=== PATIENT | female | born 1980 | race Caucasian/White ===

== ENCOUNTER → 2019-11-19 14:38 | Outpatient (BNVA) | payer MEDICAID, SELFPAY | PROVIDERS: Family Provider Nurse Practitioner Family; Visit Provider Obstetrics & Gynecology | DX: N83.202 Unspecified ovarian cyst, left side (principal); N83.201 Unspecified ovarian cyst, right side | CPT/HCPCS: 76830 ==

== ENCOUNTER → 2019-12-02 11:03 | Outpatient (BNVA) | payer MEDICAID, SELFPAY | PROVIDERS: Family Provider Nurse Practitioner Family; Visit Provider Obstetrics & Gynecology | DX: N87.1 Moderate cervical dysplasia (principal); Z90.710 Acquired absence of both cervix and uterus | CPT/HCPCS: 88175 ==

== ENCOUNTER 2021-10-01 07:27 | Outpatient (CLI) | payer MEDICAID, SELFPAY ==
--- NOTE | 2021-10-01 07:30 | XR_ITS ---
WS: [id number] KUB, AP view, 10/01/2021 Clinical Data: STONES Comparison: Acute abdomen series, 01/26/2010. Findings: No abnormal intraabdominal masses or calcifications are seen. There is no dilatated small bowel or ev idence of obstruction. There is a right ureteral stent in good position. Fecal material and bowel gas obscure detail over geena th kidneys. There are clips in the right upper quadrant from a cholecystectomy. XR/XR KUB [id number] Impression: Right ureteral stent.
== END 2021-10-01 07:28 | disposition home or self-care (01) ==
LOC: RAD 07:31
PROVIDERS: Family Provider Nurse Practitioner Family; Visit Provider Urology
DX: N20.0 Calculus of kidney (principal); N20.9 Urinary calculus, unspecified; Z96.0 Presence of urogenital implants
CPT/HCPCS: 52310; 74018; 81003; 99213

== ENCOUNTER → 2022-01-17 08:58 | Outpatient (BNVA) | payer MEDICAID, SELFPAY | PROVIDERS: Referring Provider Registered Nurse; Visit Provider Student in an Organized Health Care Education/Training Program | DX: S93.431A Sprain of tibiofibular ligament of right ankle, initial encounter (principal); W01.0XXA Fall on same level from slipping, tripping and stumbling without subsequent striking against object, initial encounter | CPT/HCPCS: 73590; 73610 ==

== ENCOUNTER 2022-02-25 14:43 | Outpatient (CLI) | payer MEDICAID, SELFPAY | END 2022-02-25 14:44 | disposition home or self-care (01) | LOC: SPT 14:44 | PROVIDERS: Visit Provider Student in an Organized Health Care Education/Training Program | DX: Z46.89 Encounter for fitting and adjustment of other specified devices (principal); S93.409S Sprain of unspecified ligament of unspecified ankle, sequela; S93.4 Sprain of ankle; X58.XXXS Exposure to other specified factors, sequela | CPT/HCPCS: 97760; L1902 ==

== ENCOUNTER → 2022-04-12 10:07 | Outpatient (BNVA) | payer MEDICAID, SELFPAY | PROVIDERS: Visit Provider Student in an Organized Health Care Education/Training Program | DX: S93.439A Sprain of tibiofibular ligament of unspecified ankle, initial encounter (principal); X58.XXXA Exposure to other specified factors, initial encounter | CPT/HCPCS: 73610 ==

== ENCOUNTER → 2022-05-23 11:24 | Outpatient (BNVA) | payer MEDICAID, SELFPAY | PROVIDERS: Visit Provider Student in an Organized Health Care Education/Training Program | DX: M25.561 Pain in right knee (principal); M25.562 Pain in left knee; S83.8X1A Sprain of other specified parts of right knee, initial encounter; X58.XXXA Exposure to other specified factors, initial encounter; M23.41 Loose body in knee, right knee | CPT/HCPCS: 73560; 73565 ==

== ENCOUNTER 2022-06-09 14:04 | Outpatient (CLI) | payer MEDICAID, SELFPAY ==
--- NOTE | 2022-06-09 14:21 | XR_ITS ---
WS: [id number] Exam: XR KUB [id number] Date/Time of Exam: 06/09/2022 2:32 PM Reason For Exam: Urolithiasis No bowel obstruction or free air. 5 mm calcification superimposes the left kidney and apparently repr esents a known renal stone. No sign of organ enlargement. Bony structures are intact. Signs of prior cholecystectomy. XR/XR KUB [id number] IMPRESSION: 1. 5 mm calcification overlying the left kidney that apparently represents a kn own renal stone. 2. No acute abdominal process.
== END 2022-06-09 14:05 | disposition home or self-care (01) ==
LOC: RAD 14:09
PROVIDERS: PCP Registered Nurse; Visit Provider Urology
DX: N20.0 Calculus of kidney (principal)
CPT/HCPCS: 74018; 81003

== ENCOUNTER 2022-06-20 07:45 | Day surgery (SDC) | payer MEDICAID, SELFPAY ==
[2022-06-17 08:57] VITALS: BMI 48.5
[2022-06-20] VITALS (10 sets, daily range): BP systolic 109–160; BP diastolic 66–101; PULSE 61–72; RESP 12–18; TEMP 36.1–36.6; O2SAT 92–100
--- NOTE | 2022-06-20 07:51 | XRR_ITS ---
PROCEDURE INFORMATION: Exam: XR Abdomen Exam date and time: 06/20/2022 7:57 AM Age: 41 years old Clinical indication: Condition or disease; Kidney or ureter condition; Calculus (stone) in kidney; Prior surgery; Surgery type: Gb, gastric sleeve, hyst; Additional info: Left lower pole stone. TECHNIQUE: Imaging protocol: Radiologic exam of the abdomen. Views: Frontal supine view of the abdomen. 1 View. COMPARISON: CR XR KUB [id number] 06/09/2022 2:32 PM FINDINGS: Gastrointestinal tract: There are bowel sutures in the left upper abdomen. Organs: Cholecystectomy clips are present. No calcifications along the expected course of the ureters. Multiple small calcifications project over both kidneys, measuring up to 6 mm on the left and 4 mm on the right. Vasculature: Tiny phleboliths are seen in pelvis. Bones/joints: Bones are unremarkable. XR/XR KUB [id number] IMPRESSION: Stable bilateral nephrolithiasis.
[2022-06-20] MEDS: sodium chloride 0.9% 1,000 ML 30 ML IV (08:53)
--- NOTE | 2022-06-20 09:07 | P.ANESASSM_ITS ---
Pre-Anesthetic Assessment Height/Weight: Height 1.7 m Weight 140.614 kg Temp Pulse Resp BP Pulse Ox O2 Del Method 97.4 F L 72 16 160/101 100 06/20/22 08:08 06/20/22 08:08 06/20/22 08:08 06/20/22 08:08 06/20/22 08:08 06/20/22 08:11 Preop Diagnosis: Left lower pole stone Operation Date: 06/20/22 09:40 Proposed Procedures p EXTRACORPOREAL SHOCKWAVE LITHOTRIPSY POSSIBLE CYSTOSCOPY LEFT STENT 26888,92459,N20.9(Left) - Ousmane Bradford MD s Cystoscopy(Not Applicable) - Ousmane Bradford MD s Ureteral Stent Placement(Left) - Ousmane Bradford MD Familial anesthetic complications: None Was Beta Ata taken within 24 hours: N/A Was Clonidine taken within 24 hours: N/A Last intake: Intake Last Liquid Date 06/19/22 Last Liquid Time 23:00 Last Solid Date 06/18/22 Last Solid Time 22:00 Social No alcohol and No tobacco Exam alert, oriented x 3, clear to auscultation bilaterally and regular rate & rhythm Airway Mallampati: Class II Dentition: false History/ROS No significant history except as noted Musc/skel Osteoarthritis/DJD Anesthetic Plan ASA status: 2 Anesthesia: General Risk of > 500 ml blood loss (7ml/kg in children): No Medications/Allergies Home Medications Medication Instructions Recorded Confirmed Last Taken Type acyclovir 200 mg capsule 200 mg PO DAILY 11/11/19 06/17/22 06/19/22 08:00 History cetirizine 10 mg capsule 10 mg PO DAILY 11/11/19 06/17/22 06/19/22 20:00 History conjugated estrogens 0.9 mg tablet 0.9 mg PO DAILY 11/11/19 06/17/22 06/19/22 08 :00 History (Premarin) omeprazole 20 mg capsule,delayed 20 mg PO DAILY 11/11/19 06/17/22 06/19/22 08:00 History release ibuprofen 800 mg tablet 800 mg PO TID 10 days #30 tabs 09/27/21 06/20/22 06/06/22 Rx alprazolam 1 mg tablet 1 mg PO DAILY PRN Anxiety 10/01/21 06/17/22 06/19/22 08:00 History lace up ankle brace #1 ea 02/25/22 06/09/22 Unknown Rx doxycycline monohydrate 100 mg 100 mg PO BID 06/17/22 06/17/22 06/19/22 20:00 History tablet levocetirizine 5 mg tablet 5 mg PO DAILY 06/17/22 06/17/22 06/19/22 20:00 History Allergies Allergy/AdvReac Type Severity Reaction Status Date / Time amoxicillin Allergy rash Verified 06/09/22 15:09 latex Allergy Hives Verified 06/09/22 15:09 cephalexin [From Keflet] AdvReac Rash, Verified 06/09/22 15:09 vomiting Current Medications Generic Name Dose Route Start Last Admin Trade Name Freq PRN Reason Stop Dose Admin Sodium Chloride 1,000 mls @ 30 mls/hr 06/20/22 08:00 06/20/22 08:53 Sodium Chloride 0.9% IV 06/21/22 07:59 30 mls/hr .Q24H TIA Administration PFSH Anesthesia Medical History Ankle syndesmosis disruption Cervical intraepithelial neoplasia grade 2 SHAYLA-2 noted on biopsy on 12/29/2010 and she had a hysterectomy for this in February 2011. She requires screening Pap smears for at least 20 years---until 2030. No pertinent past medical history Denies history of: Hypetension, hypercholesteremia, diabetes, thyroid problems, heart, kidney problems, DVT/PE. PCP: MARVIN Knight Sprain of lateral ligament of ankle joint Urolithiasis Surgical History H/O gastric bypass 03/2019, gastric sleeve performed in [place], [place] History of renal stent 09/21/2021 [facility] S/P BSO (bilateral salpingo-oophorectomy) 02/13/2020----> robotic assisted bilateral salpingo-oophorectomy and extensive adhesiolysis of omentum bowel colon and ovary. This was done for a complex left ovarian mass which was paraovarian cyst. Surgery performed by Dr. Andrez beckford at [facility]. Pathology showed benign functional ovary with inclusion cysts and dense adhesions - Operative reports have been scanned into the computer S/P cholecystectomy In her 20s---laparoscopic procedure S/P dilation and curettage Done for an elective in 2006 S/P hysterectomy 02/15/2011 --- total abdominal hysterectomy via horizontal incision above pannus performed by Dr. Danielle for SHAYLA-2 and abnormal uterine bleeding. Ovaries were spared. ---> Pathology showed no dysplasia on the cervix, secretory endometrium, benign myometrium S/P tubal ligation 2008---laparoscopic procedure Status post excision of lipoma 2014 and 2015----right upper abdominal quadrant via a horizontal incision Status post surgery 2017-procedure to remove an embedded sewing needle Family History Family/Other Diabetes maternal uncle Hypertension niece Mother Cervical cancer Denies family history of Colon cancer Ovarian cancer Hyperlipidemia Breast cancer Uterine cancer Stroke Social History Smoking and tobacco status: current every day smoker Alcohol intake: current Alcohol intake frequency: holidays/special occasions only Marital status: Current occupational status: employed Data Anesthesia Cardiac Studies: No Data to Display
--- NOTE | 2022-06-20 09:10 | W.PM.OPSUD ---
Surgery/Procedure H&P Update DATE OF PROCEDURE: June 20, 2022 DATE H&P PERFORMED: 06/09/22 H&P UPDATE INFORMATION: I have reviewed H&P completed within last 30 days, I have examined patient prior to procedure, No changes to prior documentation and H&P is in [facility] EMR on date indicated PREOP DIAGNOSIS: Left lower pole stone PLANNED PROCEDURE: Operation Date: 06/20/22 09:40 Proposed Procedures p EXTRACORPOREAL SHOCKWAVE LITHOTRIPSY POSSIBLE CYSTOSCOPY LEFT STENT [id number],N20.9(Left) - Ousmane Bradford MD s Cystoscopy(Not Applicable) - Ousmane Bradford MD s Ureteral Stent Placement(Left) - Ousmane Bradford MD
[2022-06-20] MEDS: levofloxacin-dextrose 5 % 500 MG/100 ML PREMIX 100 MG IV (09:33)
--- NOTE | 2022-06-20 10:28 | PM.OP ---
Operative Report Date of procedure: June 20, 2022 Pre-op diagnosis: Left lower pole stone Post-op diagnosis: Left lower pole stone Procedure done: 1. LEFT renal extracorporeal shockwave lithotripsy Implants: None Specimens removed/disposition: None Pathology: None Surgeon: Sanchez Dielectric Embossing Machine Operator: Eric Burger: Lithotripsy Data Recovery Planner Estimated blood loss: None Urine output: Not measured Complications: None Findings: Anesthesia: General Condition: Stable Disposition: PACU Intraoperative findings: Stone easily identified and focused upon with excellent change Total of 2100 shocks administered Brief History: Parvin is a very pleasant 41-year-old white female treated last year with endoscopic laser lithotripsy of a right proximal ureteral stone at [facility] with stent removed here. She was known to have a small stone in the left lower pole. The stone was not obstructing. Initially she elected no treatment of the stone but ultimately preferred to have the option of being stone free. She is admitted now for ESWL to the stone. Consented for stent as well. Procedure: After routine preoperative evaluation examination and obtaining of informed consent she was taken to the operating suite on 06/20/2022 where general anesthesia was administered without difficulty after appropriate timeout was performed, SCDs confirmed to be functioning, preoperative antibiotics administered, beta-spring protocol confirmed. Position on the Dornier unit such that the stone was located at the focal point with her in supine position. Shock head was initially positioned posteriorly. The stone was readily identifiable with biplanar fluoroscopy. Shockwave was initiated at a rate of 60 and after about 300 shocks a several minute pause was conducted. Rate was increased as the stone showed significant change. Intensity was increased to 5. Results: A total of 2100 shocks were administered with excellent change. No stone could be identified at the completion of the procedure. She tolerated procedure well without complications and was awakened in the operating room and returned to PACU in stable condition. PLANS: 1. Anticipate discharge from outpatient surgery 2. Follow-up in approximately 1 month for routine KUB
[2022-06-20] MEDS: fentaNYL 50 mcg/mL INJ 2mL IVP (10:53)
--- NOTE | 2022-06-20 13:05 | ANE.PACU2 ---
Inpatient post-anesthesia follow up: Airway intact: Yes Vital signs: Temperature 97.8 F Pulse Rate 69 Respiratory Rate 16 Blood Pressure 124/77 Pulse Oximetry 96 Oxygen Delivery Me thod Room Air Oxygen Flow Rate 6 Fraction of Inspir ed Oxygen Hydration adequate: Yes Nausea and vomiting: No Pain level: 1 Mental status: Baseline
== END 2022-06-20 12:20 | disposition home or self-care (01) ==
PROVIDERS: PCP Registered Nurse; Visit Provider Urology
PROC: (CPT 50590; principal; 2022-06-20 09:30)
DX: N20.0 Calculus of kidney (principal); F17.200 Nicotine dependence, unspecified, uncomplicated; Z88.0 Allergy status to penicillin
CPT/HCPCS: 50590; 74018; J0330; J1100; J1956; J2405; J2704; J2710; J3010; J3490; J7030

== ENCOUNTER 2022-06-27 09:16 | Outpatient (CLI) | payer MEDICAID, SELFPAY ==
--- NOTE | 2022-06-27 09:30 | MR_ITS ---
WS: [id number] MRI RIGHT KNEE NONCONTRAST TECHNIQUE: Axial PD, coronal PD fat sat, coronal PD, sagittal PD, and sagittal PD fat-sat images obta ined. CLINICAL INFORMATION: Pain in rt knee on movement COMPARISON: None. FINDINGS: Distal quadriceps and patella tendons are intact. Normal ACL and PCL. Small suprapatellar effusion. S mall amount of fluid and edema in the suprapatellar and pre-femoral fat pad. Prepatellar and infrapat ellar soft tissue edema. Advanced chondromalacia patella. No subchondral edema. Medial and lateral patellar retinaculum appear intact. Tiny popliteal cyst measuring 12 mm. Normal medial and lateral collateral ligaments. Normal lateral meniscus. Mild chronic thinning of the medial meniscus. No acute appearing meniscal tears. Mi ld chondromalacia medial and lateral joint compartments. MR/MR knee RT wo con* [id number] IMPRESSION: 1. Normal ACL and PCL. 2. Small suprapatellar effusion. 3. 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 No subchondral carlos a. Medial and lateral patellar retinaculum appear intact. 4. No acute appearing meniscal tears. 5. Tiny popliteal cyst measuring 12 mm. Outbridge grading:
== END 2022-06-27 09:17 | disposition home or self-care (01) ==
LOC: RAD 09:19
PROVIDERS: PCP Registered Nurse; Visit Provider Student in an Organized Health Care Education/Training Program
DX: M22.41 Chondromalacia patellae, right knee; M71.21 Synovial cyst of popliteal space [Baker], right knee; M25.461 Effusion, right knee
CPT/HCPCS: 73721

== ENCOUNTER 2022-07-11 11:37 | Outpatient (CLI) | payer MEDICAID, SELFPAY ==
--- NOTE | 2022-07-11 11:54 | XRR_ITS ---
PROCEDURE INFORMATION: Exam: XR Abdomen Exam date and time: 07/11/2022 11:58 AM Age: 41 years old Clinical indication: Condition or disease; Kidney or ureter condition; Calculus (stone) in kidney; Prior surgery; Surgery type: Gb , gastric sleeve, hyster; Additional info: Stones, kub @ 11:30am on 07/11/22, appt to follow TECHNIQUE: Imaging protocol: Radiologic exam of the abdomen. Views: Frontal supine view of the abdomen. 1 View. COMPARISON: CR XR KUB [id number] 06/20/2022 7:57 AM FINDINGS: Gastrointestinal tract: Normal. No bowel dilation. There is cholecystectomy Organs: Small calcifications are present in the projection of the lower pole collecting system of the right and left kidneys. Left-side stone measures 5 mm, right side stone measures 3.8 mm these findings were present on prior examination and appears similar Bones/joints: Unremarkable. XR/XR KUB [id number] IMPRESSION: 1. No acute GI abnormality. 2. Status post cholecystectomy. 3. Stable bilateral caliceal stones
== END 2022-07-11 11:38 | disposition home or self-care (01) ==
LOC: RAD 11:39
PROVIDERS: PCP Registered Nurse; Visit Provider Urology
DX: N20.9 Urinary calculus, unspecified (principal); Z90.49 Acquired absence of other specified parts of digestive tract
CPT/HCPCS: 74018; 81003

== ENCOUNTER 2022-08-22 08:12 | Outpatient (CLI) | payer MEDICAID, SELFPAY ==
--- NOTE | 2022-08-22 08:30 | XRR_ITS ---
PROCEDURE INFORMATION: Exam: XR Abdomen Exam date and time: 08/22/2022 8:41 AM Age: 41 years old Clinical indication: Pain and condition or disease; Kidney or ureter condition; Calculus (stone) in kidney; Other: Bilateral flank; Prior surgery; Surgery type: Gb, btl, gastric sleeve; Additional info: Stones, kub ozh 08/22/22 @ 8:15 am TECHNIQUE: Imaging protocol: Radiologic exam of the abdomen. Views: Frontal supine view of the abdomen. 1 View. COMPARISON: CR XR KUB [id number] 07/11/2022 11:58 AM FINDINGS: Gastrointestinal tract: Normal. No bowel dilation. Intraperitoneal space: Right upper quadrant surgical clips. Organs: Bilateral nephrolithiasis redemonstrated without change in size or position from the comparison. Bones/joints: Unremarkable. XR/XR KUB [id number] IMPRESSION: Bilateral nephrolithiasis unchanged from prior.
== END 2022-08-22 08:13 | disposition home or self-care (01) ==
PROVIDERS: PCP Registered Nurse; Visit Provider Urology
DX: N20.9 Urinary calculus, unspecified (principal)
CPT/HCPCS: 74018; 81003